=== PATIENT | female | born 1970 | race Caucasian/White ===

== ENCOUNTER 2024-05-08 08:26 | Observation (INO) ==
--- NOTE | 2024-04-07 10:37 | PAT Medication Instructions ---
Medication Instructions Date of Service April 07, 2024 Home Medications diclofenac sodium 1 % topical gel 4 g topical QID erenumab-aooe 70 mg/mL subcutaneous auto-injector (Aimovig Autoinjector) 70 mg subcut MONTHLY estradiol 1 mg tablet 1 mg PO HS lorazepam 0.5 mg tablet (Ativan) 0.5 mg PO DAILY PRN naproxen sodium 220 mg tablet (Aleve) 220 mg PO DAILY sumatriptan succinate 100 mg tablet (Imitrex) 100 mg PO UD PRN tizanidine 4 mg tablet 4 mg PO HS PRN trazodone 50 mg tablet 50 mg PO HS PRN Continue as directed lorazepam 0.5 mg tablet (Ativan) 0.5 mg PO DAILY PRN(if needed) sumatriptan succinate 100 mg tablet (Imitrex) 100 mg PO UD PRN(if needed) erenumab-aooe 70 mg/mL subcutaneous auto-injector (Aimovig Autoinjector) 70 mg subcut MONTHLY ASK your surgeon for instructions naproxen sodium 220 mg tablet (Aleve) 220 mg PO DAILY ASK your prescriber and surgeon estradiol 1 mg tablet 1 mg PO HS STOP taking 24 hours before surgery diclofenac sodium 1 % topical gel 4 g topical QID Take evening before surgery tizanidine 4 mg tablet 4 mg PO HS PRN(if needed) trazodone 50 mg tablet 50 mg PO HS PRN(if needed) Other Notes NOTHING TO EAT OR DRINK AFTER MIDNIGHT. If you have any questions please call us at [phone] or [phone] or [phone] or [phone]
--- NOTE | 2024-04-14 11:58 | Anesthesiology Consultation ---
Date of Service April 14, 2024 Assessment & Plan (1) Encounter for pre-operative examination: Plan - awaiting PCP (Marvin Mcelroy) clearance. - fentanyl and morphine allergies: patient reports severe itching and g eneralized erythema. She states has been pre-dosed with benadryl in the past for outpatient nerve blocks and still experienced persistent symptoms. I had a detailed discussion with patient and her regarding neuraxial vs general anesthesia and option to still pursue neuraxial anesthesia without fentanyl pre- dosing. Patient verbalized understanding and expressed comfort with plan, denied questions or concerns regarding this. Case discussed in detail with Dr. Christian who agreed with recommendation to pursue neuraxial anesthesia without fentanyl pre-dosing, advised nothing additional needed from anesthesia standpoint. - Case discussed in detail with Dr. Barrios who advised medical clearance prior to surgery. Malini with PCP office advised patient can be seen prior to surgery and their office will contact patient with appointment details. I left message for patient to relay that anesthesia team is requesting clearance. PAT testing to be faxed to PCP at [phone]. - Patient and her inquired if a private room could be available for her to stay overnight given distance from home to hospital. I advised per hospital protocol, request can be made with RN money room supervisor DOS. They verbalized understanding and agreement, denied any additional questions or concerns. I offered list of local hotels and they stated information was already provided by PAT RN. OR made aware. Chart Review Chart Review: Pending: Refer to Additional Notes / Consult section and Patient seen in Pre Admission Testing Teaching & Discussion Pre-Anesthesia Teaching/Discussion Notes: Instructed NPO after midnight before surgery, except medications with 15 cc of water. Medication instructions provided according to the PAT guidelines. History Surgery Operation Date: 05/08/24 08:00 Proposed Procedures p Right Total Knee Arthroplasty - Kal Gomez, Height/Weight Height: 5 ft 2 in Weight: 60.6 kg Allergies Allergy/AdvReac Type Severity Reaction Status Date / Time fentanyl Allergy Intermediate *severe Verified 04/14/24 13:04 itching, generalized erythema morphine Allergy Intermediate *severe Verified 04/14/24 13:06 itching, see note Medications Home Medications Medication Instructions Recorded Confirmed Last Taken diclofenac sodium 1 % topical gel 4 g topical QID Pain 03/30/24 03/30/24 Unknown erenumab-aooe 70 mg/mL 70 mg subcut MONTHLY 03/30/24 03/30/24 Unknown subcutaneous auto-injector (Aimovig Autoinjector) estradiol 1 mg tablet 1 mg PO HS 03/30/24 03/30/24 Unknown lorazepam 0.5 mg tablet (Ativan) 0.5 mg PO DAILY PRN Anxiety 03/30/24 03/30/24 Unknown naproxen sodium 220 mg tablet 220 mg PO DAILY 03/30/24 03/30/24 Unknown (Aleve) sumatriptan succinate 100 mg 100 mg PO UD PRN Migraine Headache 03/30/24 03/30/24 Unknown tablet (Imitrex) tizanidine 4 mg tablet 4 mg PO HS PRN Spasms 03/30/24 03/30/24 Unknown trazodone 50 mg tablet 50 mg PO HS PRN Insomnia 03/30/24 03/30/24 Unknown Past Medical History Medical History (Updated 04/14/24 @ 13:18 by Koki Boyce PA-C) Anxiety Bradycardia due to hx of Lyme dx per pt > can go as low as 40's, saw cards, no longer has to see cards Depression Expected difficult intubation 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 Exercise / Class Metabolic Activity II 4-5 Yardwork/Stairs/Walk up hill (denies chest discomfort or shortness of breath with one flight of stairs) Past Family History Family History Mother Slow to wake up after anesthesia Hypertension cardiac history-additional details unknown. Past Surgical History Surgical History History of adenoidectomy History of bunionectomy left History of section x1 History of colon resection due to wrapped around ovary History of colonoscopy History of esophagogastroduodenoscopy (EGD) History of hysteroscopy History of partial hysterectomy History of tonsillectomy Hx of bilateral oophorectomy separate occasion from hyster Hx of cervical spine surgery C3-6, hardware in place, > ROM mildly limited all directions (just feel stiff) Hx of hernia repair Hx of knee surgery right Hx of laparoscopy Hx of shoulder surgery left [place] teeth extracted Past Anesthesia History No Hx of Anesthesia Complications and Other (see above) History of PONV No Hx of PONV and No Hx of Motion Sickness Social History Smoking Status: Former smoker Do You Dip or Chew Tobacco: No Smoking End Date: 4 yrs ago Hx Alcohol Use: Yes alcohol intake frequency: holidays/special occasions only Hx Substance Use: No substance use type: does not use Review of Systems Snoring, denies witnessed apneas. Patient denies chest pain, shortness of breath, dyspnea on exertion, reflux, fever, chills, cough, wheezing, or palpitations. Physical Exam Vital Signs Vitals BP 105/68 P 48 TEMP 98.0 SP02 98% on RA RESP 17 Physical Patient resting comfortably in chair in no acute distress, alert and oriented, responding appropriately throughout visit Limited cervical extension range of motion without pain TMD < 3 finger breadths Mallampati Score 2 Dentition: several caps/crowns; denies chipped or loose teeth, caps/crowns, implants or bridges Lungs: normal respiratory effort. Good air movement, clear throughout to auscultation, no adventitious breath sounds Cardiac: bradycardic, regular rhythm, no murmurs noted Carotid arteries: negative bruit bilat Lab Results Anesthesia Preop Results Results Anesthesia Widget: WBC 5.06 K/ul (4.8-10.8) 04/14/24 Hgb 13.1 g/dl (12.0-16.0) 04/14/24 Hct 39.2 % (37.0-47.0) 04/14/24 Plt 359 K/uL (130-400) 04/14/24 Na 138 mmol/L (136-145) 04/14/24 K 4.0 mmol/L (3.5-5.1) 04/14/24 Cl 106 mmol/L (98-107) 04/14/24 CO2 25 mmol/L (21-32) 04/14/24 BUN 8 mg/dl (6-23) 04/14/24 Creat 0.77 mg/dl (0.6-1.2) 04/14/24 Glucose Level 84 mg/dl (70-99(Fasting)) 04/14/24 PT 10.3 Seconds (9.0-12.0) 04/14/24 PTT 25 Seconds (21-31) 04/14/24 INR 0.9 (0.9-1.1) 04/14/24 Blood Type A Positive 04/14/24 Antibody Screen NEGATIVE 04/14/24 Testing Electrocardiogram Date: 04/14/24 Sinus bradycardia, rate 51 bpm Chest X-Ray Date: 03/17/24 No active pulmonary disease. Stress Test Date: 09/07/20 METS 7.5 MPHR 87% Clinically negative test. The EKG is not very well performed during this test
[~2024-05-08 08:26] MED LIST: BUPIVACAINE 0.5 % 5 MG/1 ML PF 10ML VIAL ONE; ROPIVACAINE 0.5% 5 MG/ML 30 ML VIAL ONE
[2024-05-08] MEDS: LR 60ML/HR IV SCH (10:01)
[2024-05-08] MEDS: LR 500ML BOLUS, THEN 15ML/HR IV SCH (10:10)
[2024-05-08] MEDS: ACETAMINOPHEN 500 MG TAB PO SCH ×2 (10:21→22:41)
[2024-05-08] MEDS: dexAMETHasone**PF** 10 MG/ML VIAL IV SCH (10:22)
[2024-05-08] MEDS: FAMOTIDINE 20 MG TAB PO SCH (10:22)
[2024-05-08] MEDS: GABAPENTIN 900 MG DOSE PO SCH (10:22)
--- NOTE | 2024-05-08 10:34 | History & Physical Bridge Note ---
Date of Service May 08, 2024 History & Physical Bridge Note I have examined the patient, reviewed the History & Physical and in the interval since the performance of the History & Physical I have noted the following changes of clinical significance: no changes noted
[2024-05-08] MEDS ORDERED: MIDAZOLAM HCL 1 MG/ML 2ML VIAL ONE (10:46)
[2024-05-08] MEDS ORDERED: DexMEDEtomidine HCL IV 100 MCG/ML VIAL IV ONE (10:52)
[2024-05-08] MEDS ORDERED: ONDANSETRON INJ 2 MG/ML 2 ML VIAL IV PRN ×2 (11:03→16:34)
[2024-05-08] MEDS ORDERED: HYDROmorphone INJ 1 MG/ML SYRINGE IV PRN (11:03)
[2024-05-08] MEDS ORDERED: ATROPINE SULFATE 0.1 MG/ML 10ML SYR IV PRN (11:03)
[2024-05-08] MEDS ORDERED: ePHEDrine sulfate 50 MG/ML AMP IV PRN (11:03)
[2024-05-08] MEDS: TRANEXAMIC ACID 1,000 MG **IV Pre-op IV SCH (11:24)
[2024-05-08] MEDS ORDERED: diphenhydrAMINE 50 MG/ML VIAL ONE (11:25)
[2024-05-08] MEDS: ceFAZolin 2000MG 2,000 MG/15 ML SYR IV SCH ×2 (11:41→20:31)
[2024-05-08] MEDS: ROPIV 0.5% 246mg, Ketorolac 30mg, EPINEPHrine 0.5mg in NSS INFIL SCH (12:18)
[2024-05-08] MEDS: ORTHO JOINT ANESTHETIC ONE (12:18)
[2024-05-08] MEDS: TRANEXAMIC ACID 1,000 MG **IV Intra-op IV SCH (12:48)
[2024-05-08] MEDS ORDERED: PROPOFOL IV EMULSION 10 MG/ML 20 ML VIAL IV ONE (12:55)
[2024-05-08] MEDS ORDERED: PHENYLEPHRINE 100MCG/ML 10ML SYR IV ONE (12:55)
--- NOTE | 2024-05-08 12:56 | Operative Report ---
PG Post Operative Report Pre & Post Diagnosis Operation Date: 05/08/24 11:00 Pre-Op Diagnosis: Right Knee Degenerative Joint Disease Post-Op Diagnosis: Right Knee Degenerative Joint Disease I identified the patient and participated in the time-out.: Yes Procedure Operation Date: 05/08/24 11:00 Actual Procedures p Right Total Knee Arthroplasty, Cemented(Right) - Kal Gomez DO Surgeon Kal Gomez DO Die Cast Engineer Kal Henderson PA-C Estimated Blood Loss 30 Findings Consistent with Post-Op Diagnosis Specimens Right femoral and tibial bone Description of Procedure Implants used: I used a Raphael Persona total knee arthroplasty system with a size 6 narrow femur, C tibia, 28 oval patella, and a size 13 medial congruent polyethylene bearing. All components were cemented in place with Biomet cement. Samantha arrived [facility] for the above procedure. She was seen in the preoperative holding area and the operative extremity was identified and signed. She was given a preoperative antibiotic, TXA, a spinal anesthetic and an adductor nerve block. She was taken back to the operating room and laid on the table in supine position. She was given basic sedation. The operative knee was then prepped and draped in sterile fashion. A timeout was done, and the patient and the operative extremity was properly identified. A midline incision was made directly over the patella. Dissection was taken down to the extensor mechanism. A subvastus arthrotomy was used. The medial retinaculum was released and the fat pad was mostly excised. The knee was flexed and the ACL, PCL, and meniscus were removed. A drill was sent down the center of the femoral canal followed by an intramedullary sharla. Off that sharla a distal femoral cutting block was placed. 9 mm was resected off the distal femur at 5 of valgus. A posterior referencing AP sizing guide was then placed on the distal femur. The femur measured to be a size 6. 2 drill holes were placed in 3 of external rotation. A 4-in-1 cutting block was then impacted into place. Anterior, posterior, and chamfer cuts were then made. The proximal tibia was then exposed. An external tibial alignment guide was placed. A tibial cut guide was then anchored in place and the proximal tibia was then resected. The posterior aspect of the knee was then opened up and any additional meniscus fragments and osteophytes were removed. The tibia measured to be a size C. The tibial plate was then placed in the appropriate rotation and the tibia was drilled and punched. Trial components were then placed. I used a size 13 medial congruent polyethylene insert. The knee was brought through a full range of motion and felt to be stable. The peg holes for the femoral component were then drilled. The patella was then everted and 9 mm was resected off the posterior aspect of the patella. The patella measured to be a size 28 oval. 3 peg holes were then drilled. A trial patella was placed. The knee was once again brought through a full range of motion and felt to be stable. Trial components were then removed. The surrounding soft tissues were injected with 100 cc of an orthopedic pain control cocktail. All components were then cemented into place with Biomet cement. The final polyethylene insert was then snapped into place. Once cement was dry the tourniquet was deflated. Hemostasis was obtained. A dilute betadyne lavage was then done for 3 minutes. The joint was then irrigated with normal saline solution. The subvastus arthrotomy was then closed with #1 Vicryl suture. The skin was closed with 2-0 Vicryl, 3-0V lock suture, and kem. A soft compressive dressing was placed. She was then transferred to a hospital bed and taken to the postanesthesia care unit in stable condition. She tolerated the procedure well. Kal Henderson PA-C, was present for the entire procedure. He was critical for patient positioning, prepping, draping, retraction exposure, wound closure and application of sterile dressing. I attest to the content of the Intraoperative Record and any orders documented therein. Any exceptions are noted below.
--- NOTE | 2024-05-08 13:17 | XRay Report ---
TWO VIEWS RIGHT KNEE CLINICAL HISTORY: Postoperative examination. FINDINGS: AP and crosstable lateral portable views of the right knee are obtained. A right knee arthr oplasty is in near anatomic alignment. There has been undersurface remodeling of the patella. No acut e fracture is seen. There are expected postoperative changes around the knee including skin clips, so ft tissue edema, and subcutaneous gas. IMPRESSION: Expected postoperative changes status post right knee arthroplasty. No acute fracture is seen. ACT 112: Negative or not required by law. Electronically signed by: Dipesh Keen M.D. 05/08/2024 1:16 PM
--- NOTE | 2024-05-08 13:31 | Anesthesiology Progress Note ---
Date of Service May 08, 2024 Anesthesia Post Procedure Vital Signs Vital Signs: Temp Pulse Pulse Resp BP Pulse Ox O2 Del Method 05/08/24 13:30 51 L 14 90/52 L 100 Oxymask 05/08/24 13:20 52 L 16 83/57 L 100 Oxymask 05/08/24 13:10 36.1 C L 57 L 17 91/51 L 100 Oxymask 05/08/24 09:30 36.9 C 63 18 103/64 98 Room Air O2 Flow Rate 05/08/24 13:30 4 05/08/24 13:20 4 05/08/24 13:10 8 05/08/24 09:30 Pain Intensity Right Knee: Pain Intensity: 4 Notes Mental Status: alert / awake / arousable Patient Amnestic to Procedure: Yes Nausea / Vomiting: adequately controlled Pain: adequately controlled Airway Patency, RR, SpO2: stable & adequate BP & HR: stable & adequate Hydration State: stable & adequate Neuraxial Anesthesia: was administered and sensory block is resolving Anesthetic Complications: no major complications apparent
[2024-05-08] MEDS ORDERED: MAGNESIUM HYDROXIDE SUSP 30 ML UDC PO PRN (16:34)
[2024-05-08] MEDS ORDERED: SUMAtriptan succinate 100 MG TAB PO PRN (16:34)
[2024-05-08] MEDS ORDERED: METOCLOPRAMIDE HCL INJ 5 MG/ML 2 ML VIAL IV PRN (16:34)
[2024-05-08] MEDS ORDERED: oxyCODONE HCL IR 5 MG TAB (IMMEDIATE RELEASE) PO PRN (16:34)
[2024-05-08] MEDS ORDERED: HYDROmorphone INJ 0.5 MG/0.5 ML SYR IV PRN (16:34)
[2024-05-08] MEDS ORDERED: bisacodyL 10 MG SUPP PR PRN (16:34)
[2024-05-08] MEDS ORDERED: traZODone HCL 50 MG TAB PO PRN (16:34)
[2024-05-08] MEDS ORDERED: tiZANidine HCL 4 MG TABLET PO PRN (16:34)
[2024-05-08] MEDS ORDERED: LORazepam 0.5 MG TAB PO PRN (16:34)
[2024-05-08] MEDS ORDERED: NALOXONE HCL 0.4 MG/1 ML VIAL/CARP IV PRN (16:34)
[2024-05-08] MEDS: SODIUM CHLORIDE 0.9% 1,000 ML IV SCH (17:53)
[2024-05-08] MEDS: KETOROLAC 30 MG/ML VIAL IV SCH (17:53)
[2024-05-08] MEDS: ASPIRIN 81 MG ECTAB PO SCH (20:32)
[2024-05-08] MEDS: SENNA 8.6 MG TAB PO SCH (20:32)
[2024-05-08] MEDS: estradioL 1 MG TAB PO SCH (20:33)
[2024-05-08] MEDS: DOCUSATE SODIUM 100 MG CAP PO SCH (20:34)
[2024-05-09 07:01] VITALS: PULSE 48; RESP 18; TEMP 98.1; O2SAT 98
[2024-05-09] MEDS: dexAMETHasone 4 MG TAB PO SCH (08:00)
[2024-05-09] MEDS: MULTIVITAMIN TAB PO SCH (08:00)
--- NOTE | 2024-05-09 09:00 | Orthopedic Progress Note ---
Date of Service May 09, 2024 Assessment & Plan (1) Status post right knee replacement: Postop day 1 from her right total knee arthroplasty with Dr. Gomez. No issues other than some asymptomatic hypotension. Plan for the total joint pathway to continue. Show PT and OT evaluations this morning and likely discharge home with home health. Subjective Reports no pain. She has been up to the bathroom. She denies any dizziness other than when she first stood up yesterday. Waiting for PT and OT this morning. Concerned about her low blood pressure. Review of Systems All systems reviewed & are unremarkable except as noted in HPI & below. Physical Exam Right lower extremity: The dressing is clean and dry and intact. She easily performs a full straight leg raise with no lag. Pos DF/PF/EHL. DNVI Constitutional WD/WN, vitals as above no acute distress and not intoxicated appearing Respiratory normal respiratory effort; no labored breathing Cardiovascular Extremities: normal capillary refill Results & Data Results & Data Laboratory Results . Diagnostic Findings . PG Care Time/CCT Total # of Minutes Spent Total Time Spent with Patient: Total time spent is greater than 50% in coordination of care (as documented) at patient's floor/unit and/or counseling patient: Coding Level of Care Code 22067 Post Operative Follow-Up Diagnoses Status post right knee replacement Z96.651
[2024-05-09 09:49] VITALS: BP 97/62
== END 2024-05-09 11:12 | disposition home or self-care (01) ==
LOC: ASU 08:26 → 3E 08:26